=== PATIENT | male | born 1965 | race Caucasian/White ===

== ENCOUNTER → 2016-07-13 | Outpatient (CLI) | payer SELFPAY ==
--- NOTE | 2016-07-13 13:31 | XR ---
EXAMINATION TYPE: XR chest 2V DATE OF EXAM: 07/13/2016 12:28 PM COMPARISON: NONE INDICATION: Chest pain TECHNIQUE: Frontal and lateral views of the chest are obtained. FINDINGS: The heart size is normal. The pulmonary vasculature is normal. The lungs are clear. IMPRESSION: 1. No acute pulmonary process.
== END | disposition home or self-care (01) ==
LOC: RADXRMAIN 12:06
PROVIDERS: ATTEND Family Medicine
DX: R07.9 Chest pain, unspecified (principal)
CPT/HCPCS: 71020

== ENCOUNTER 2016-07-15 11:53 | Observation (INO) | payer OTHER ==
[2016-07-15 12:26] LABS: Basophils % (A) 1 %; CH 32.7; CHCM 34.4; Eosinophils # (A) 0.1 k/uL (0-0.7); Eosinophils % (A) 1 %; HCT 40.4 % (39.0-53.0); HDW 2.17; HGB 13.6 gm/dL (13.0-17.5); Luc # (Auto) 0.27; Luc % (Auto) 3; Lymphocytes # (A) 2.3 k/uL (1.0-4.8); Lymphocytes % (A) 25 %; MCHC 33.6 g/dL (31.0-37.0); MCV 95.2 fL (80.0-100.0); Mean Platelet Volume 7.5; Monocytes # (A) 0.5 k/uL (0-1.0); Monocytes % (A) 5 %; Neutrophils # (A) 6.1 k/uL (1.3-7.7); Neutrophils % (A) 66 %; RBC 4.24 m/uL (4.30-5.90); RDW 12.1 % (11.5-15.5); WBC 9.3 k/uL (3.8-10.6); WBC (Perox) 9.64
[2016-07-15 12:37] LABS: Partial Thromboplastin Time 23.8 sec (22.0-30.0); Prothrombin Time 10.4 sec (9.0-12.0)
[2016-07-15 12:40] LABS: ALT 45 U/L (21-72); AST 29 U/L (17-59); Alkaline Phosphatase 67 U/L (38-126); Anion Gap 15 mmol/L; Blood Urea Nitrogen 24 mg/dL (9-20); Calcium 9.6 mg/dL (8.4-10.2); Carbon Dioxide 22 mmol/L (22-30); Chloride 103 mmol/L (98-107); Glucose 103 mg/dL (74-99); Non-African American GFR(MDRD) >60 (>60 ml/min/1.73 sqM); Potassium 4.6 mmol/L (3.5-5.1); Sodium 140 mmol/L (137-145); Total Bilirubin 0.7 mg/dL (0.2-1.3); Total Protein 7.7 g/dL (6.3-8.2)
--- NOTE | 2016-07-15 12:45 | XR ---
EXAMINATION TYPE: XR chest 2V DATE OF EXAM: 07/15/2016 12:34 PM COMPARISON: 07/13/2016 HISTORY: 50-year-old male with chest pain TECHNIQUE: PA and lateral views FINDINGS: Heart is normal size. Mild elongation of the thoracic aorta is unchanged. Mild interstitial prominenc e appears chronic. No consolidation or pleural effusion. IMPRESSION: Chronic changes without acute cardiopulmonary process.
--- NOTE | 2016-07-15 12:54 | ED ---
General Adult HPI - General Chief complaint: Chest Pain Stated complaint: chest pain Time Seen by Provider: 07/15/16 12:08 Source: patient, RN notes reviewed, old records reviewed Mode of arrival: wheelchair Limitations: no limitations - History of Present Illness Initial comments: This is a 50-year-old male ER for events of chest pain, intermittent chest pain for 3 months, worse today. Patient has no cardiac risk factors no high blood pressure [place] shown no diabetes no strong family history. Patient states pain is left-sided with dizziness weakness nausea vomiting. No fevers or travel history, no risk factors or prior history of DVT. Patient did see his family physician who sent him to the ER for evaluation - Related Data Home Medications Medication Instructions Recorded Confirmed Aspirin 81 mg PO DAILY 07/15/16 07/15/16 Atenolol 25 mg PO BID 07/15/16 07/15/16 Multivitamin/Iron/Folic Acid 1 tab PO DAILY 07/15/16 07/15/16 [Centrum Complete Multivit Tab] Allergies Allergy/AdvReac Type Severity Reaction Status Date / Time No Known Allergies Allergy Verified 07/15/16 12:00 Review of Systems ROS Statement: Those systems with pertinent positive or pertinent negative responses have been documented in the HPI. ROS Other: All systems not noted in ROS Statement are negative. Past Medical History Past Medical History: No Reported History History of Any Multi-Drug Resistant Organisms: None Reported Additional Past Surgical History / Comment(s): Jaw Past Psychological History: No Psychological Hx Reported Smoking Status: Former smoker Past Alcohol Use History: Occasional Past Drug Use History: None Reported General Exam Limitations: no limitations General appearance: anxious Head exam: Present: atraumatic, normocephalic, normal inspection Eye exam: Present: normal appearance, PERRL, EOMI. Absent: scleral icterus, conjunctival injection, periorbital swelling ENT exam: Present: normal exam, mucous membranes moist Neck exam: Present: normal inspection. Absent: tenderness, meningismus, lymphadenopathy Respiratory exam: Present: normal lung sounds bilaterally. Absent: respiratory distress, wheezes, rales, rhonchi, stridor Cardiovascular Exam: Present: regular rate, normal rhythm, normal heart sounds. Absent: systolic murmur, diastolic murmur, rubs, gallop, clicks GI/Abdominal exam: Present: soft, normal bowel sounds. Absent: distended, tenderness, guarding, rebound, rigid Extremities exam: Present: normal inspection, full ROM, normal capillary refill. Absent: tenderness, pedal edema, joint swelling, calf tenderness Back exam: Present: normal inspection Neurological exam: Present: alert, oriented X3, CN II-XII intact Psychiatric exam: Present: normal affect, normal mood Skin exam: Present: warm, dry, intact, normal color. 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 She does have significant chest pain, hypertension for cardiac risk factors patient will be admitted for cardiac evaluation treatment initial EKG shows no ST elevation, initial troponin is negative, will patient anticoagulated patient admitted for further cardiac observation - Lab Data Result diagrams: 07/15/16 12:12 07/15/16 12:12 Lab Results 07/15/16 07/15/16 07/15/16 Range/Units 12:12 12:12 12:12 WBC 9.3 (3.8-10.6) k/uL RBC 4.24 L (4.30-5.90) m/uL Hgb 13.6 (13.0-17.5) gm/dL Hct 40.4 (39.0-53.0) % MCV 95.2 (80.0-100.0) fL MCH 32.0 (25.0-35.0) pg MCHC 33.6 (31.0-37.0) g/dL RDW 12.1 (11.5-15.5) % Plt Count 300 (150-450) k/uL Neutrophils % 66 % Lymphocytes % 25 % Monocytes % 5 % Eosinophils % 1 % Basophils % 1 % Neutrophils # 6.1 (1.3-7.7) k/uL Lymphocytes # 2.3 (1.0-4.8) k/uL Monocytes # 0.5 (0-1.0) k/uL Eosinophils # 0.1 (0-0.7) k/uL Basophils # 0.0 (0-0.2) k/uL PT (9.0-12.0) sec INR (<1.1) APTT (22.0-30.0) sec Sodium 140 (137-145) mmol/L Potassium 4.6 (3.5-5.1) mmol/L Chloride 103 (98-107) mmol/L Carbon Dioxide 22 (22-30) mmol/L Anion Gap 15 mmol/L BUN 24 H (9-20) mg/dL Creatinine 0.70 (0.66-1.25) mg/dL Est GFR (MDRD) Af Amer >60 (>60 ml/min/1.73 sqM) Est GFR (MDRD) Non-Af >60 (>60 ml/min/1.73 sqM) Glucose 103 H (74-99) mg/dL Calcium 9.6 (8.4-10.2) mg/dL Magnesium 2.0 (1.6-2.3) mg/dL Total Bilirubin 0.7 (0.2-1.3) mg/dL AST 29 (17-59) U/L ALT 45 (21-72) U/L Alkaline Phosphatase 67 (38-126) U/L Total Creatine Kinase 110 (55-170) U/L CK-MB (CK-2) 1.2 (0.0-2.4) ng/mL CK-MB (CK-2) Rel Index 1.1 Troponin I <0.012 (0.000-0.034) ng/mL Total Protein 7.7 (6.3-8.2) g/dL Albumin 4.8 (3.5-5.0) g/dL Lipase 56 (23-300) U/L 07/15/16 Range/Units 12:12 WBC (3.8-10.6) k/uL RBC (4.30-5.90) m/uL Hgb (13.0-17.5) gm/dL Hct (39.0-53.0) % MCV (80.0-100.0) fL MCH (25.0-35.0) pg MCHC (31.0-37.0) g/dL RDW (11.5-15.5) % Plt Count (150-450) k/uL Neutrophils % % Lymphocytes % % Monocytes % % Eosinophils % % Basophils % % Neutrophils # (1.3-7.7) k/uL Lymphocytes # (1.0-4.8) k/uL Monocytes # (0-1.0) k/uL Eosinophils # (0-0.7) k/uL Basophils # (0-0.2) k/uL PT 10.4 (9.0-12.0) sec INR 1.0 (<1.1) APTT 23.8 (22.0-30.0) sec Sodium (137-145) mmol/L Potassium (3.5-5.1) mmol/L Chloride (98-107) mmol/L Carbon Dioxide (22-30) mmol/L Anion Gap mmol/L BUN (9-20) mg/dL Creatinine (0.66-1.25) mg/dL Est GFR (MDRD) Af Amer (>60 ml/min/1.73 sqM) Est GFR (MDRD) Non-Af (>60 ml/min/1.73 sqM) Glucose (74-99) mg/dL Calcium (8.4-10.2) mg/dL Magnesium (1.6-2.3) mg/dL Total Bilirubin (0.2-1.3) mg/dL AST (17-59) U/L ALT (21-72) U/L Alkaline Phosphatase (38-126) U/L Total Creatine Kinase (55-170) U/L CK-MB (CK-2) (0.0-2.4) ng/mL CK-MB (CK-2) Rel Index Troponin I (0.000-0.034) ng/mL Total Protein (6.3-8.2) g/dL Albumin (3.5-5.0) g/dL Lipase (23-300) U/L - Radiology Data Radiology results: report reviewed (Chest x-ray 2 view negative for acute disease), image reviewed Critical Care Time Critical Care Time: Yes Total Critical Care Time: 31 Disposition Clinical Impression: Chest pain Disposition: HOME SELF-CARE Condition: Good Referrals: Noah Vasquez MD [Primary Care Provider] - 1-2 days
[2016-07-15 12:57] LABS: Creatine Kinase 110 U/L (55-170)
[2016-07-15 13:10] LABS: Creatine Kinase MB 1.2 ng/mL (0.0-2.4); Troponin I <0.012 ng/mL (0.000-0.034)
[2016-07-15] MEDS ORDERED: HEPARIN SODIUM,PORCINE 5,000 UNIT/ML 1 ML VIAL IV ONE (13:36)
[2016-07-15] MEDS ORDERED: HEPARIN SODIUM,PORCINE 5,000 UNIT/ML 1 ML VIAL IV PRN (13:36)
[2016-07-15] MEDS ORDERED: ASPIRIN 81 MG CHEW PO STA (13:36)
[2016-07-15] MEDS ORDERED: NITROGLYCERIN SL TABS 0.4 MG TAB SUBLINGUAL PRN (13:36)
[2016-07-15] MEDS ORDERED: HEPARIN SODIUM,PORCINE/D5W PMX 25,000 UNIT in DEXTROSE/WATER 1 500ML.BAG IV SCH (13:45)
[2016-07-15] MEDS: SODIUM CHLORIDE 0.9% 1,000 ML IV SCH (14:46)
[2016-07-15 19:17] LABS: Creatine Kinase 98 U/L (55-170)
[2016-07-15 19:30] LABS: Creatine Kinase MB 1.1 ng/mL (0.0-2.4); Troponin I <0.012 ng/mL (0.000-0.034)
[2016-07-15] MEDS: ATENOLOL 25 MG TAB PO SCH (20:09)
[2016-07-16 00:13] LABS: Creatine Kinase 89 U/L (55-170)
[2016-07-16 00:27] LABS: Creatine Kinase MB 0.9 ng/mL (0.0-2.4); Troponin I <0.012 ng/mL (0.000-0.034)
[2016-07-16 06:55] LABS: Cholesterol 206 mg/dL (<200); HDL Cholesterol 38 mg/dL (40-60); Triglycerides 253 mg/dL (<150)
--- NOTE | 2016-07-16 08:44 | ECHOF ---
Referral Reason:cp MEASUREMENTS -------- HEIGHT: 165.1 cm WEIGHT: 81.7 kg BP: RVIDd: 2.8 cm (< 3.3) IVSd: 1.0 cm (0.6 - 1.1) LVIDd: 4.8 cm (3.9 - 5.3) LVPWd: 0.9 cm (0.6 - 1.1) IVSs: 1.3 cm LVIDs: 3.7 cm LVPWs: 1.4 cm LA Diam: 2.9 cm (2.7 - 3.8) Ao Diam: 4.0 cm (2.0 - 3.7) AV Cusp: 1.9 cm (1.5 - 2.6) LA Diam: 3.2 cm (2.7 - 3.8) MV EXCURSION: 12.148 mm (> 18.000) MV EF SLOPE: 100 mm/s (70 - 150) EPSS: 0.9 cm MV E Carlos: 0.60 m/s MV DecT: 153 ms MV A Carlos: 0.86 m/s MV E/A Ratio: 0.70 RAP: 5.00 mmHg RVSP: 26.68 mmHg FINDINGS -------- Sinus rhythm. This was a technically good study. There is mild concentric left ventricular hypertrophy. Overall left ventricular systolic function is low-normal with, an EF between 50 - 55 %. The right ventricle is normal in size. Normal LA size by volume 22+/-6 ml/m2. The right atrial size is normal. There is mild aortic valve sclerosis. There is no evidence of aortic regurgitation. Mild mitral annular calcification present. Mild mitral regurgitation is present. Mild tricuspid regurgitation present. There is no evidence of pulmonary hypertension. The right ventricular systolic pressure, as measured by Doppler, is 26.68mmHg. Trace/mild (physiologic) pulmonic regurgitation. The aortic root size is normal. There is no pericardial effusion. CONCLUSIONS -------- 1. There is mild concentric left ventricular hypertrophy. 2. Trace/mild (physiologic) pulmonic regurgitation. 3. The aortic root size is normal. 4. There is no pericardial effusion. 5. Overall left ventricular systolic function is low-normal with, an EF between 50 - 55 %. 6. Normal LA size by volume 22+/-6 ml/m2. 7. There is mild aortic valve sclerosis. 8. Mild mitral annular calcification present. 9. Mild mitral regurgitation is present. 10. Mild tricuspid regurgitation present. 11. There is no evidence of pulmonary hypertension. 12. The right ventricular systolic pressure, as measured by Doppler, is 26.68mmHg. STRAPPING MACHINE TENDER: Justine Finnegan RDCS
[2016-07-16] MEDS ORDERED: ASPIRIN 325 MG TAB PO SCH (09:00)
[2016-07-16] MEDS ORDERED: ATORVASTATIN 80 MG TAB PO SCH (09:00)
[2016-07-16] MEDS ORDERED: REGADENOSON 0.4 MG/5 ML SYRINGE IV ONE (09:53)
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
[2016-07-16] MEDS ORDERED: LOSARTAN 50 MG TAB PO SCH (10:30)
[2016-07-16] MEDS ORDERED: FAMOTIDINE 20 MG TAB PO SCH (10:30)
[2016-07-16] MEDS: SODIUM CHLORIDE 0.9% 1,000 ML IV SCH (10:57)
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
--- NOTE | 2016-07-16 11:35 | CONS ---
DATE OF CONSULTATION: Mr. Collins is a 50-year-old male patient who has a history of hypertension. He went to Dr. Noah Vasquez's office. He was given oral beta blockers, but he started experiencing abdominal discomfort that went up into his chest and then went up into his head and he felt his head was bursting. Subsequently he also had some left-sided chest discomfort which appears to be pleuritic and when he moves his left arm the pain gets worse. On initial evaluation, his blood pressure was elevated in the 160s, but today it is in the normal range. He did get beta blockers. REVIEW OF SYSTEMS: No fever, chills, or rigors. No cough or expectoration. No nausea, vomiting, or diarrhea. No hematuria or dysuria. No recent strokes or seizures. Past history of hypertension. He does not know his lipid panel, but his lipid panel is abnormal as follows: Triglycerides 253, total cholesterol 206, LDL 117 and HDL 38. He has ( ) cardiovascular risk with a blood pressure of greater than 160 systolic is at 8.5%. He is nondiabetic. ALLERGIES: No known drug allergies. Medications at home include aspirin, atenolol which has been discontinued, multivitamin. SOCIAL HISTORY: He was a former smoker. He stopped smoking now. On examination, his blood pressure now is in the normal range in the 120s. His heart rate is in the 60s and 70s. Head and neck examination normal. No JVD, thyromegaly, or carotid bruits. Abdomen is soft, nontender. No masses. Heart sounds are normal. Normal S1, normal S2. No murmurs. Breath sounds are normal. No rhonchi. No crackles. Extremities are warm. No edema. The 12-lead ECG is normal. The 2-D echocardiogram is normal with normal LV function. IMPRESSION: 1. Chest discomfort of 2 different types. 2. Hypertension. 3. Abnormal lipid panel and elevated cardiovascular risk of 8.5% based upon initial blood pressure of 160 mmHg systolic. SUGGEST: 1. Stop atenolol. 2. Start losartan 50 mg p.o. daily. 3. Start atorvastatin 20 mg daily. 4. Exercise stress echo with Definity contrast today. If this is normal, he may go home. We will also check a D-dimer because the pain is pleuritic, but also gets worse when he moves his left arm. I will see him in the office in about 2 weeks.
[2016-07-16] MEDS ORDERED: MULTIVITAMINS, THERA 1 EACH TAB PO SCH (12:00)
[2016-07-16] MEDS: ATENOLOL 25 MG TAB PO SCH (12:14)
[2016-07-16 12:36] VITALS: BP 120/80; PULSE 75; RESP 14; TEMP 98.1
--- NOTE | 2016-07-16 13:07 | ECHOS ---
DATE OF SERVICE: 07/16/2016 AGE: 50Y SEX: M HT: 66" WT: 186 lbs. Protocol Lucius: X Others: Stress Echo Stage: IV Dur. of Exercise: 10 minutes *Heart Rate Blood Pressure *Rest: 82 Rest: 127/74 * *Max. Achieved: 152 Maximum BP: 188/78 85% PMHR: 145 100% PMHR: 170 *METS: 10.9 INDICATIONS: Chest pain. MEDICATIONS: Aspirin. The test is being done to evaluate chest pains. Baseline EKG showed sinus rhythm with normal SC interval and QRS duration. Blood pressure at rest is 127/74 with a pulse rate of 82. Patient walked on the Lucius protocol for about 10 minutes achieving a maximum heart rate of 152 with a blood pressure of 188/78. EKGs taken during and after the exercise did not reveal any changes to suggest ischemia. Occasional PVCs were noted. Patient did not experience any chest pain. ECHO DATA: Baseline echo images showed normal wall motion and thickening. The exercise echo images showed augmentation of the wall motion and thickening in all the segments. FINAL IMPRESSION: 1. Negative stress test. 2. Negative stress echo.
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
[2016-07-16] MEDS ORDERED: ATORVASTATIN 20 MG TAB PO SCH (21:00)
== END 2016-07-16 15:02 | disposition home or self-care (01) ==
LOC: EC 11:53 → 3OBS 13:36
PROVIDERS: ADMIT Family Medicine; ATTEND Family Medicine
DX: I16.0 Hypertensive urgency (principal); E78.5 Hyperlipidemia, unspecified; R13.10 Dysphagia, unspecified; R07.89 Other chest pain; I10 Essential (primary) hypertension; Z79.82 Long term (current) use of aspirin; Z79.899 Other long term (current) drug therapy; Z87.891 Personal history of nicotine dependence; E66.9 Obesity, unspecified; Z68.30 Body mass index [BMI] 30.0-30.9, adult; Z87.828 Personal history of other (healed) physical injury and trauma
CPT/HCPCS: 36415; 93005; 93350; 93017; 93306; 85379; 80061; 80053; 82550; 82553; 83690; 83735; 84484; 85025; 85049; 85610; 85730 ×2; 71020; 99291; 96376; G0378 ×2; J1644 ×2; J2785; 96366

== ENCOUNTER 2017-01-01 11:59 | Emergency (ER) | payer OTHER ==
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
[2017-01-01 13:11] LABS: ALT 46 U/L (21-72); AST 28 U/L (17-59); Anion Gap 10 mmol/L; Blood Urea Nitrogen 17 mg/dL (9-20); Calcium 9.3 mg/dL (8.4-10.2); Carbon Dioxide 25 mmol/L (22-30); Chloride 106 mmol/L (98-107); Glucose 91 mg/dL (74-99); Magnesium 1.8 mg/dL (1.6-2.3); Non-African American GFR(MDRD) >60 (>60 ml/min/1.73 sqM); Sodium 141 mmol/L (137-145); Total Bilirubin 0.6 mg/dL (0.2-1.3); Total Protein 6.6 g/dL (6.3-8.2)
[2017-01-01 13:16] LABS: Alkaline Phosphatase 66 U/L (38-126)
--- NOTE | 2017-01-01 13:19 | XR ---
EXAMINATION TYPE: XR chest 2V DATE OF EXAM: 01/01/2017 COMPARISON: 07/15/2016 HISTORY: Chest pressure TECHNIQUE: Frontal and lateral views of the chest are obtained. FINDINGS: Heart and mediastinum are normal. Lungs are clear. Diaphragm is normal. Bony thorax is int act. There is spurring in the thoracic spine. There are chest leads. IMPRESSION: No active cardiopulmonary disease. No change.
[2017-01-01 13:23] LABS: Basophils % (A) 0 %; CH 32.5; CHCM 34.6; Eosinophils % (A) 0 %; HCT 34.1 % (39.0-53.0); HDW 2.15; HGB 11.8 gm/dL (13.0-17.5); Luc # (Auto) 0.22; Luc % (Auto) 2; Lymphocytes % (A) 16 %; MCH 32.7 pg (25.0-35.0); MCHC 34.6 g/dL (31.0-37.0); MCV 94.3 fL (80.0-100.0); Mean Platelet Volume 8.2; Monocytes # (A) 0.6 k/uL (0-1.0); Monocytes % (A) 5 %; Neutrophils # (A) 9.4 k/uL (1.3-7.7); Neutrophils % (A) 77 %; RBC 3.61 m/uL (4.30-5.90); RDW 12.5 % (11.5-15.5); WBC 12.3 k/uL (3.8-10.6); WBC (Perox) 12.16
[2017-01-01 13:32] LABS: Partial Thromboplastin Time 23.2 sec (22.0-30.0); Prothrombin Time 10.3 sec (9.0-12.0)
[2017-01-01 13:44] LABS: Creatine Kinase 220 U/L (55-170)
[2017-01-01 13:57] LABS: Troponin I <0.012 ng/mL (0.000-0.034)
[2017-01-01 14:09] LABS: Creatine Kinase MB 2.6 ng/mL (0.0-2.4)
[2017-01-01 14:17] VITALS: PULSE 63; RESP 16
[2017-01-01 14:26] VITALS: BP 103/65; TEMP 97.5
== END 2017-01-01 14:38 | disposition home or self-care (01) ==
LOC: EC 11:59
DX: R07.9 Chest pain, unspecified (principal); M19.90 Unspecified osteoarthritis, unspecified site; Z87.891 Personal history of nicotine dependence; Z79.1 Long term (current) use of non-steroidal anti-inflammatories (NSAID); Z79.82 Long term (current) use of aspirin; Z79.899 Other long term (current) drug therapy
CPT/HCPCS: 36415; 71020; 80053; 82550; 82553; 83690; 83735; 84484; 85025; 85379; 85610; 85730; 93005; 99285

== ENCOUNTER 2017-02-10 07:57 | Observation (INO) | payer OTHER ==
[2017-02-10] MEDS ORDERED: NITROGLYCERIN OINT 1 INCH/GM PACKET TOPICAL STA (08:12)
[2017-02-10] MEDS ORDERED: ASPIRIN 81 MG PO STA (08:12)
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
--- NOTE | 2017-02-10 08:55 | XR ---
EXAMINATION TYPE: XR chest 2V DATE OF EXAM: 02/10/2017 COMPARISON: 01/01/2017 HISTORY: Chest pain and discomfort TECHNIQUE: Frontal and lateral views of the chest are obtained. FINDINGS: There is no focal air space opacity, pleural effusion, or pneumothorax seen. The cardiac silhouette size is within normal limits. The osseous structures are intact. Degenerative changes of the thoracic spine are noted. IMPRESSION: No acute cardiopulmonary process, unchanged from the prior.
[2017-02-10 09:15] LABS: ALT 41 U/L (21-72); AST 28 U/L (17-59); Alkaline Phosphatase 69 U/L (38-126); Anion Gap 11 mmol/L; Blood Urea Nitrogen 19 mg/dL (9-20); Calcium 9.4 mg/dL (8.4-10.2); Carbon Dioxide 25 mmol/L (22-30); Chloride 103 mmol/L (98-107); Glucose 115 mg/dL (74-99); Magnesium 1.7 mg/dL (1.6-2.3); Non-African American GFR(MDRD) >60 (>60 ml/min/1.73 sqM); Potassium 4.2 mmol/L (3.5-5.1); Sodium 139 mmol/L (137-145); Total Bilirubin 0.7 mg/dL (0.2-1.3)
[2017-02-10 09:16] LABS: Creatine Kinase 121 U/L (55-170)
[2017-02-10 09:18] LABS: Basophils % (A) 0 %; CH 32.1; CHCM 34.4; Eosinophils # (A) 0.1 k/uL (0-0.7); Eosinophils % (A) 1 %; HCT 37.8 % (39.0-53.0); HDW 2.14; HGB 13.1 gm/dL (13.0-17.5); Luc # (Auto) 0.27; Luc % (Auto) 3; Lymphocytes # (A) 1.8 k/uL (1.0-4.8); Lymphocytes % (A) 20 %; MCH 32.3 pg (25.0-35.0); MCHC 34.5 g/dL (31.0-37.0); MCV 93.6 fL (80.0-100.0); Mean Platelet Volume 7.4; Monocytes # (A) 0.6 k/uL (0-1.0); Monocytes % (A) 7 %; Neutrophils % (A) 69 %; RBC 4.04 m/uL (4.30-5.90); WBC 8.8 k/uL (3.8-10.6); WBC (Perox) 9.26
[2017-02-10 09:20] LABS: Partial Thromboplastin Time 21.9 sec (22.0-30.0); Prothrombin Time 10.2 sec (9.0-12.0)
[2017-02-10 09:30] LABS: Creatine Kinase MB 1.8 ng/mL (0.0-2.4); Troponin I <0.012 ng/mL (0.000-0.034)
[2017-02-10] MEDS ORDERED: NITROGLYCERIN SL TABS 0.4 MG TAB SUBLINGUAL PRN (09:45)
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
[2017-02-10 14:56] LABS: Creatine Kinase 94 U/L (55-170)
[2017-02-10 15:08] LABS: Creatine Kinase MB 1.2 ng/mL (0.0-2.4); Troponin I <0.012 ng/mL (0.000-0.034)
[2017-02-10 15:18] VITALS: RESP 18
[2017-02-10] MEDS: NITROGLYCERIN OINT 1 INCH/GM PACKET TOPICAL SCH ×3 (15:45→23:50)
[2017-02-10] MEDS: ASPIRIN 81 MG PO SCH ×2 (20:40→20:42)
[2017-02-10] MEDS ORDERED: ATORVASTATIN 20 MG TAB PO SCH (21:00)
[2017-02-10 21:10] LABS: Creatine Kinase 92 U/L (55-170)
[2017-02-10 21:15] LABS: Creatine Kinase MB 0.9 ng/mL (0.0-2.4); Troponin I <0.012 ng/mL (0.000-0.034)
[2017-02-11 02:37] LABS: Cholesterol 172 mg/dL (<200); HDL Cholesterol 47 mg/dL (40-60)
[2017-02-11] MEDS ORDERED: AMINOPHYLLINE 500 MG/20 ML VIAL IV PRN (05:00)
[2017-02-11] MEDS ORDERED: REGADENOSON 0.4 MG/5 ML SYRINGE IV ONE (06:00)
[2017-02-11] MEDS: NITROGLYCERIN OINT 1 INCH/GM PACKET TOPICAL SCH (06:29)
[2017-02-11] MEDS ORDERED: LEVOTHYROXINE 100 MCG TAB PO SCH (06:30)
[2017-02-11] MEDS ORDERED: PANTOPRAZOLE 40 MG TABLET PO SCH (07:30)
[2017-02-11] MEDS ORDERED: LOSARTAN 50 MG TAB PO SCH (09:00)
[2017-02-11] MEDS ORDERED: MELOXICAM 7.5 MG TAB PO SCH (09:00)
[2017-02-11] MEDS ORDERED: ATENOLOL 12.5 MG TAB PO SCH (09:00)
[2017-02-11] MEDS ORDERED: ASPIRIN 325 MG TAB PO SCH (09:00)
--- NOTE | 2017-02-11 10:52 | NM ---
EXAMINATION TYPE: NM stress lexiscan cardiolite DATE OF EXAM: 02/11/2017 COMPARISON: NONE HISTORY: Chest pain TECHNIQUE: After the intravenous administration of 10.2 mCi Tc 99m Sestamibi - Cardiolite resting SP ECT images acquired 45 minutes post injection. The patient received 0.4mg Lexiscan, 28 mCi Tc 99m Sestamibi - Stress images obtained 45 minutes post injection FINDINGS: Review of stress and rest SPECT images demonstrates no distinct perfusion abnormality. Gated analysi s shows normal wall motion with an estimated left ventricular ejection fraction of 63 %. There is diminished radiotracer accumulation at the cardiac apex on stress images. This area has a mo re normal appearance on the resting images. Note is made of some cardiac thickening at the cardiac ap ex. Additional balbuena abnormal radiotracer. IMPRESSION: Clinical correlation recommended for stress-induced ischemic change the cardiac apex.
--- NOTE | 2017-02-11 11:00 | US ---
EXAMINATION TYPE: US abdomen complete DATE OF EXAM: 02/11/2017 COMPARISON: NONE CLINICAL HISTORY: epigastric pain. Chest pain and rt flank/back "twitching" per patient EXAM MEASUREMENTS: Liver Length: 14.1 cm Gallbladder Wall: 0.2 cm CBD: 0.4 cm Spleen: 11.0 cm Right Kidney: 12.7 x 4.9 x 7.1 cm Left Kidney: 12.4 x 5.4 x 6.2 cm Pancreas: wnl Liver: wnl Gallbladder: wnl Evidence for sonographic Nagy's sign: no CBD: wnl Spleen: wnl Right Kidney: wnl Left Kidney: wnl Upper IVC: wnl Abd Aorta: wnl IMPRESSION: 1. Normal abdomen ultrasound
[2017-02-11] MEDS ORDERED: MULTIVITAMINS, THERA 1 EACH TAB PO SCH (12:00)
[2017-02-11] MEDS ORDERED: ISOSORBIDE MONONITRATE ER 30 MG TAB.ER.24H PO SCH (13:45)
--- NOTE | 2017-02-11 13:45 | P.PN ---
Subjective This is a 51-year-old male who was seen yesterday in consultation for complaints of epigastric pain. Lexiscan was performed this morning and indicates that diminished radiotracer accumulation at the cardiac apex on stress images. Images were reviewed with Dr. Vail. Patient's clinical presentation is not consistent with previous findings. His results were discussed with the patient in great length and questions were. I have discussed the risks, benefits and alternative therapies for the above-mentioned procedure and for both sedation/analgesia as well as necessary blood product administration, if indicated, as they pertain to this patient. The patient has indicated understanding and acceptance of the risks and procedures discussed. The patient was given 2 options to proceed with heart catheterization. He should either undergo this procedure will here in the hospital or he could be discharged home to have the procedure on Tuesday. The patient has decided that he feels comfortable going home on medical therapy and will continue his current home medications with the addition of Imdur. He will presented back to the hospital on Tuesday for an outpatient cardiac catheterization Dr. Vail. This has been all set up. Objective - Vital Signs Vital signs: Vital Signs Temp 98.8 F 02/11/17 11:45 Pulse 60 02/11/17 12:00 Resp 18 02/11/17 12:00 BP 102/57 02/11/17 11:45 Pulse Ox 96 02/11/17 11:45 Intake & Output 02/10/17 02/11/17 02/11/17 18:59 06:59 18:59 Intake Total 820 300 360 Balance 820 300 360 Weight 78.4 kg Intake: Oral 820 300 360 Other: Voiding Method Toilet Toilet Toilet # Voids 2 2 3 - Exam GENERAL: Well-appearing, well-nourished and in no acute distress. NECK: Supple without JVD or thyromegaly. LUNGS: Breath sounds clear to auscultation bilaterally. Respiration equal and unlabored. No wheezes, rales or rhonchi. HEART: Regular rate and rhythm without murmurs, rubs or gallops. S1 and S2 heard. EXTREMITIES: Normal range of motion, no edema. No clubbing or cyanosis. Peripheral pulses intact and strong. - Labs CBC & Chem 7: 02/10/17 08:25 08/31/17 08:25 Assessment and Plan Plan: ASSESSMENT 1. Epigastric pain 2. Essential hypertension 3. Dyslipidemia PLAN From a cardiac standpoint, this patient is stable for discharge home on medical therapy. He is to return on Tuesday at 8 AM for cardiac catheterization with Dr. Vail. This has been discussed with the patient questions have been answered and he is in complete agreement with this plan of care. He has been advised if he feels any further episodes of this type pain he is to report to the emergency department. Nurse Practitioner note has been reviewed, I agree with a documented findings and plan of care. Patient was seen and examined.
[2017-02-11 15:50] VITALS: BP 102/63; PULSE 62; TEMP 98.2
--- NOTE | 2017-02-11 17:22 | HP ---
HISTORY AND PHYSICAL SUBJECTIVE: A 51-year-old, white male, who has left-sided epigastric chest burning and pressure was reading a paper, drinking coffee and gas from his upper abdomen went into his chest. It is tender to palpation when he pushed on the left side of his chest. reproducible. He had an exercise echo in July that was unremarkable. He will need a stress test at this point before he goes home. EKG shows LVH. CPKs are normal. Chest x-ray was negative. Echo shows LVH 50-55% EF. REVIEW OF SYSTEM: Fourteen point review of systems negative except for as mentioned in HPI. PAST HISTORY: Ophthalmologic disorder, GERD, hypertension, dyslipidemia, osteoarthritis, right hand. 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 FAMILY HISTORY: Father with GI bleed. Mother is doing good. MEDICINES AND ALLERGIES: See old chart. CARDIOVASCULAR: S1, S2. MUSCULOSKELETAL: Tender to palpation of left chest wall with costo area anteriorly. HEMATOLOGIC: Negative Kiya's. GI: Soft, nontender Blood pressure is 130/70, O2 100% on room air. Temp 98.4, pulse is 70 to 80s. ASSESSMENT: 1. Epigastric. 2. Hypertension. 3. Atypical chest pain and costochondritis. 4. Dyslipidemia. 5. Rule out any kind of cholecystitis. A stress test prior to discharge home. PARESHL / NAHUNN: [id number] /
--- NOTE | 2017-02-11 19:37 | EST ---
EXERCISE STRESS DATE OF SERVICE: 02/11/17 TYPE OF EXAM: Lexiscan RESTING HEART RATE: 57 RESTING BLOOD PRESSURE: 110/76 MAXIMUM HEART RATE: 96 MAXIMUM BLOOD PRESSURE: 136/79 85% PMHR: 144 100% PMHR:169 HISTORY: Mr. Collins is a 51 year old gentleman with history of hypertension and hypercholesterolemia and also smoking being evaluated for cardiac status. Baseline EKG showed sinus rhythm with normal KS interval and QRS duration with nonspecific ST-T abnormalities. The patient was given standard dose of Lexiscan. EKG did not reveal any changes to suggest ischemia. FINAL IMPRESSION: 1. Negative Lexiscan stress test. 2. Report on the nuclear images to be done by the radiologist. MMODL / IJN: [id number] /
== END 2017-02-11 16:35 | disposition home or self-care (01) ==
LOC: EC 07:57 → 3OBS 09:46
PROVIDERS: ADMIT Family Medicine; ATTEND Family Medicine
DX: R10.13 Epigastric pain (principal); R07.89 Other chest pain; M94.0 Chondrocostal junction syndrome [Tietze]; I10 Essential (primary) hypertension; E78.5 Hyperlipidemia, unspecified; M19.041 Primary osteoarthritis, right hand; K21.9 Gastro-esophageal reflux disease without esophagitis; H35.30 Unspecified macular degeneration; Z79.1 Long term (current) use of non-steroidal anti-inflammatories (NSAID); Z79.82 Long term (current) use of aspirin; Z79.899 Other long term (current) drug therapy; Z87.891 Personal history of nicotine dependence
CPT/HCPCS: 36415; 93005; 93017; 80061; 80053; 82550; 82553; 83735; 84484; 85025; 85610; 85730; 71020; 76700; 78452; 99285; G0378 ×2; A9500; J2785

== ENCOUNTER → 2017-02-15 | Day surgery (SDC) | payer OTHER ==
[~2017-02-15] MED LIST: ALPRAZolam 0.25 MG TAB PO PRN; ASPIRIN 325 MG TAB PO STA; IOHEXOL 350 MG/ML 125ML BOTTLE INJ ONE; LIDOCAINE 2% INJ 20 MG/ML (20 ML MDV) ONE; LIDOCAINE 2% INJ 20 MG/ML SQ ONE; MIDAZOLAM 2 MG/2 ML VIAL IVP ONE; MIDAZOLAM 2 MG/2 ML VIAL ONE; NITROGLYCERIN SL TABS 0.4 MG TAB SUBLINGUAL PRN; RX INFO: IV CONTRAST WAS GIVEN 1 EACH MISC MISCELLANE PRN; SODIUM CHLORIDE 0.9% 1,000 ML IV ONE; SODIUM CHLORIDE 0.9% 1,000 ML IV SCH; SODIUM CHLORIDE 0.9% 1,000 ML in EMPTY BAG 1 BAG IV ONE; fentaNYL (PF) 50 MCG/ML 2 ML AMP IV ONE; fentaNYL (PF) 50 MCG/ML 2 ML AMP ONE
[2017-02-15 08:32] VITALS: PULSE 63; RESP 20; TEMP 98.5
--- NOTE | 2017-02-15 10:12 | P.PCN ---
Date of Procedure: 02/15/17 Preoperative Diagnosis: Recurrent chest pain and positive stress test Postoperative Diagnosis: Normal coronary arteries. Moderate plaque in the superficial femoral artery Procedure(s) Performed: Left heart catheterization with left ventriculography Implants: Indications for Procedure: Operative Findings: Description of Procedure: HISTORY: This is a 51-year-old gentleman who was admitted recently with chest pains which were atypical. Patient was evaluated by nuclear stress test which was suggestive of possible ischemia of the apex. Patient is advised to have a cardiac catheterization for definitive diagnosis. CONSENT:I have discussed the risks, benefits and alternative therapies for the above-mentioned procedure and for both sedation/analgesia as well as necessary blood product administration, if indicated, as they pertain to this patient. The patient has indicated understanding and acceptance of the risks and procedures discussed. PROCEDURE: Patient was brought to the lab in a fasting state. Patient was given some IV sedation. The right groin is infiltrated with lidocaine and right femoral artery was entered using Seldinger technique. A 6-[place]ian catheter was left in place and selective coronary arteriography and left ventriculography was performed. Patient tolerated the procedure well. Femoral angiogram was performed and Angio-Seal was applied for hemostasis. No immediate complications were noted and patient was transferred to [facility] in a stable condition Conscious Sedation: Versed : 1 mg Fentanyl 50 g Duration 20 minutes HEMODYNAMICS: The aortic pressure was about 80-90 systolic. Left ankle end- diastolic pressure is 8-12. There was no gradient across the aortic valve SELECTIVE CORONARY ARTERIOGRAPHY: LEFT MAIN: Normal length and patent THE LEFT ANTERIOR DESCENDING CORONARY ARTERY: . This is a good caliber vessel giving rise to 2 diagonal branches and septal branches. The LAD and branches are free of any occlusive disease THE LEFT CIRCUMFLEX AND IS CORONARY ARTERY: . This is a good caliber vessel. We will rise to good-sized OM branch. The circumflex and branches are free of occlusive disease THE RIGHT CORONARY ARTERY: . This is a dominant vessel and good in size, free of any occlusive disease. THE FEMORAL ANGIOGRAM: This revealed about 50-60% extrinsic plaque in the superficial femoral artery LEFT VENTRICULOGRAPHY: This revealed normal-sized Cardec silhouette with good systolic function FINAL IMPRESSION: NORMAL CORONARY ARTERIES. Normal LV function. PLAN: Symptomatically medical therapy and this factor modification. PROGNOSIS: Good.
[2017-02-15 15:43] VITALS: BP 101/64
== END | disposition home or self-care (01) ==
LOC: CATHCVL 07:52
PROVIDERS: ATTEND Internal Medicine Cardiovascular Disease
DX: R07.89 Other chest pain (principal); I10 Essential (primary) hypertension; E78.5 Hyperlipidemia, unspecified; Z87.891 Personal history of nicotine dependence; Z79.82 Long term (current) use of aspirin; Z79.1 Long term (current) use of non-steroidal anti-inflammatories (NSAID); Z79.899 Other long term (current) drug therapy
CPT/HCPCS: 93458; 99153; C1894; C1769; J2001; J2250; J3010; Q9967

== ENCOUNTER → 2017-03-02 | Outpatient (CLI) | payer OTHER ==
--- NOTE | 2017-03-02 15:10 | NM ---
EXAMINATION TYPE: NM hepatobiliary w EF DATE OF EXAM: 03/02/2017 COMPARISON: NONE HISTORY: Right upper quadrant pain per order. Epigastric pain per patient. TECHNIQUE: After the intravenous administration of 5.23 mCi Tc 99m Mebrofenin hepatobiliary scintigra phy is performed. Immediate images post injection. FINDINGS: There is satisfactory initial accumulation of tracer by the liver. The gallbladder is visualized wit hin 20 minutes. The small bowel activity is noted within 25 minutes. At one hour 8 ounces of oral e nsure plus is given to mimic CCK and gallbladder ejection fraction is calculated at 75 %, in the norm al range. Therefore there is no scintigraphic evidence of cystic or common bile duct obstruction to suggest acute cholecystitis or gallbladder dyskinesia. IMPRESSION: Exam is within normal limits.
== END | disposition home or self-care (01) ==
LOC: RADNMMAIN 12:52
PROVIDERS: ATTEND Family Medicine
DX: R10.11 Right upper quadrant pain (principal)
CPT/HCPCS: 78226; A9537

== ENCOUNTER → 2018-03-01 | Outpatient (CLI) | payer OTHER ==
[2018-03-01 10:35] LABS: Cholesterol 183 mg/dL (<200); HDL Cholesterol 44 mg/dL (40-60); LDL Cholesterol,Calculated 106 mg/dL (0-99); Triglycerides 166 mg/dL (<150)
== END | disposition home or self-care (01) ==
LOC: LABWHC1 10:01
PROVIDERS: ATTEND Internal Medicine Clinical Cardiac Electrophysiology
DX: E78.5 Hyperlipidemia, unspecified (principal)
CPT/HCPCS: 36415; 80061

== ENCOUNTER 2018-03-13 09:24 | Day surgery (SDC) | payer OTHER ==
[2018-03-08 12:23] VITALS: BMI 29.8
[~2018-03-13 09:24] MED LIST changes: -ALPRAZolam 0.25 MG TAB PO PRN; -ASPIRIN 325 MG TAB PO STA; -IOHEXOL 350 MG/ML 125ML BOTTLE INJ ONE; +LACTATED RINGERS 1,000 ML IV SCH; -LIDOCAINE 2% INJ 20 MG/ML (20 ML MDV) ONE; -LIDOCAINE 2% INJ 20 MG/ML SQ ONE; -MIDAZOLAM 2 MG/2 ML VIAL IVP ONE; -MIDAZOLAM 2 MG/2 ML VIAL ONE; -NITROGLYCERIN SL TABS 0.4 MG TAB SUBLINGUAL PRN; -RX INFO: IV CONTRAST WAS GIVEN 1 EACH MISC MISCELLANE PRN; -SODIUM CHLORIDE 0.9% 1,000 ML IV ONE; -SODIUM CHLORIDE 0.9% 1,000 ML IV SCH; -SODIUM CHLORIDE 0.9% 1,000 ML in EMPTY BAG 1 BAG IV ONE; -fentaNYL (PF) 50 MCG/ML 2 ML AMP IV ONE; -fentaNYL (PF) 50 MCG/ML 2 ML AMP ONE
[2018-03-13 09:51] VITALS: TEMP 98.3
[2018-03-13] MEDS ORDERED: LIDOCAINE 1% 20 ML VIAL (10MG/ML) FOR IV START INTRADERMA ONE (09:59)
[2018-03-13] MEDS ORDERED: PROPOFOL 10 MG/ML 20 ML VIAL IV ONE (10:09)
[2018-03-13] MEDS ORDERED: LIDOCAINE 1% INJ 10MG/ML (20 ML MDV) ONE (10:09)
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
--- NOTE | 2018-03-13 10:37 | P.OP ---
Date of Procedure: 03/13/18 Preoperative Diagnosis: Screening colonoscopy Postoperative Diagnosis: Normal colonoscopy Procedure(s) Performed: Colonoscopy Anesthesia: MAC Surgeon: Jesus Manuel Jaquez Pathology: none sent Condition: stable Disposition: PACU Description of Procedure: PROCEDURE: The patient was placed on the endoscopy table in the lateral position. Digital rectal examination was performed which revealed no abnormalities. The prostate was symmetrical without nodules. Flexible colonoscope was then placed in the patient's anus and passed throughout the entire colon. The ileocecal valve was visualized. The cecum, ascending, transverse, descending and sigmoid colon were normal. The rectum was normal as well. There were no masses, polyps or diverticula noted in the entire colon. SUMMARY OF FINDINGS: Normal colonoscopy.
[2018-03-13 10:58] VITALS: BP 110/75; PULSE 67; RESP 18
== END 2018-03-13 11:52 | disposition home or self-care (01) ==
LOC: ORWHC2ENDO 09:24
PROVIDERS: ATTEND Surgery
DX: Z12.11 Encounter for screening for malignant neoplasm of colon (principal); K21.9 Gastro-esophageal reflux disease without esophagitis; E78.5 Hyperlipidemia, unspecified; I10 Essential (primary) hypertension; H35.30 Unspecified macular degeneration; M19.90 Unspecified osteoarthritis, unspecified site; E07.9 Disorder of thyroid, unspecified; Z87.891 Personal history of nicotine dependence; Z79.82 Long term (current) use of aspirin; Z79.890 Hormone replacement therapy; Z79.899 Other long term (current) drug therapy
CPT/HCPCS: J2001; J2704; G0121; 45378

== ENCOUNTER 2018-07-13 07:57 | Day surgery (SDC) | payer OTHER ==
[2018-07-11 11:35] VITALS: BMI 29.0
[~2018-07-13 07:57] MED LIST changes: +LIDOCAINE 1% 20 ML VIAL (10MG/ML) FOR IV START INTRADERMA PRN
[2018-07-13 08:28] VITALS: RESP 16; TEMP 97.3
[2018-07-13] MEDS ORDERED: LIDOCAINE 1% 20 ML VIAL (10MG/ML) FOR IV START INTRADERMA ONE (08:35)
[2018-07-13] MEDS ORDERED: LIDOCAINE 1% INJ 10MG/ML (20 ML MDV) ONE (09:58)
[2018-07-13] MEDS ORDERED: PROPOFOL 10 MG/ML 20 ML VIAL IV ONE (09:58)
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
--- NOTE | 2018-07-13 10:07 | P.OP ---
Date of Procedure: 07/13/18 Preoperative Diagnosis: GERD Postoperative Diagnosis: Antral gastritis No significant hiatal hernia Mild esophagitis Procedure(s) Performed: EGD Anesthesia: MAC Surgeon: Jesus Manuel Jaquez Pathology: other (Antral, esophagus) Condition: stable Disposition: PACU Description of Procedure: The patient's placed on the endoscopy table in the lateral position. He received IV sedation. The gastroscope placed oropharynx and passed in the esophagus and into the stomach. Scope then placed through the pylorus. The first and second portion of the duodenum appeared normal. Scope was then brought back the antrum this. Mildly inflamed. A biopsies performed. The scope was then retroflexed remainder stomach appeared normal. There is no significant hiatal hernia. The GE junction was at 40 cm. The distal esophagus appeared mildly inflamed a biopsies performed. The proximal esophagus appeared normal. Scope was withdrawn for patient.
[2018-07-13 10:51] VITALS: BP 113/74; PULSE 72
== END 2018-07-13 10:53 | disposition home or self-care (01) ==
LOC: ORWHC2ENDO 07:57
PROVIDERS: ATTEND Surgery
DX: K29.50 Unspecified chronic gastritis without bleeding (principal); K21.0 Gastro-esophageal reflux disease with esophagitis; I10 Essential (primary) hypertension; E78.5 Hyperlipidemia, unspecified; E03.9 Hypothyroidism, unspecified; D64.9 Anemia, unspecified; E66.9 Obesity, unspecified; Z68.29 Body mass index [BMI] 29.0-29.9, adult; M19.90 Unspecified osteoarthritis, unspecified site; E78.00 Pure hypercholesterolemia, unspecified; Z79.1 Long term (current) use of non-steroidal anti-inflammatories (NSAID); Z79.890 Hormone replacement therapy; Z79.899 Other long term (current) drug therapy; H35.30 Unspecified macular degeneration; Z87.891 Personal history of nicotine dependence; Z83.79 Family history of other diseases of the digestive system
CPT/HCPCS: 88305; 43239; J2001; J2704

== ENCOUNTER 2018-09-24 10:55 | Observation (INO) | payer OTHER ==
[2018-09-24] MEDS ORDERED: SODIUM CHLORIDE 0.9% 1,000 ML IV STA (11:33)
[2018-09-24] MEDS ORDERED: ASPIRIN 81 MG PO STA (11:33)
[2018-09-24] MEDS ORDERED: NITROGLYCERIN OINT 1 INCH/GM PACKET TOPICAL STA (11:33)
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
[2018-09-24 11:56] LABS: Basophils % (A) 0 %; Eosinophils # (A) 0.2 k/uL (0-0.7); Eosinophils % (A) 1 %; HCT 38.2 % (39.0-53.0); Lymphocytes % (A) 15 %; MCH 31.8 pg (25.0-35.0); MCV 93.7 fL (80.0-100.0); Mean Platelet Volume 7.4; Monocytes # (A) 0.7 k/uL (0-1.0); Monocytes % (A) 5 %; Neutrophils # (A) 10.6 k/uL (1.3-7.7); Neutrophils % (A) 77 %; Platelet Count 328 k/uL (150-450); RBC 4.08 m/uL (4.30-5.90); WBC 13.7 k/uL (3.8-10.6)
[2018-09-24 12:04] LABS: ALT 37 U/L (21-72); AST 31 U/L (17-59); Alkaline Phosphatase 80 U/L (38-126); Anion Gap 11 mmol/L; Blood Urea Nitrogen 11 mg/dL (9-20); Calcium 9.7 mg/dL (8.4-10.2); Carbon Dioxide 22 mmol/L (22-30); Chloride 107 mmol/L (98-107); Glucose 87 mg/dL (74-99); Magnesium 1.9 mg/dL (1.6-2.3); Potassium 4.1 mmol/L (3.5-5.1); Sodium 140 mmol/L (137-145); Total Bilirubin 0.3 mg/dL (0.2-1.3); Total Protein 7.7 g/dL (6.3-8.2)
[2018-09-24 12:35] LABS: D-Dimer 0.36 mg/L FEU (<0.60); INR 0.9 (<1.2); Partial Thromboplastin Time 24.1 sec (22.0-30.0); Prothrombin Time 9.8 sec (9.0-12.0)
--- NOTE | 2018-09-24 12:36 | XR ---
EXAMINATION TYPE: XR chest 2V DATE OF EXAM: 09/24/2018 HISTORY: Chest Pain. REFERENCE: Previous study dated 02/10/2017. FINDINGS: The lungs are clear. Pleural spaces are clear. Heart size is within normal limits. IMPRESSION: NO ACUTE CARDIOTHORACIC ABNORMALITY.
[2018-09-24] MEDS ORDERED: NITROGLYCERIN SL TABS 0.4 MG TAB SUBLINGUAL PRN (13:32)
[2018-09-24] MEDS ORDERED: MELOXICAM 7.5 MG TAB PO PRN (16:19)
[2018-09-24] MEDS: NITROGLYCERIN OINT 1 INCH/GM PACKET TOPICAL SCH ×2 (20:46→23:45)
[2018-09-24] MEDS: HEPARIN SODIUM,PORCINE 5,000 UNIT/ML 1 ML VIAL SQ SCH (20:48)
[2018-09-24] MEDS ORDERED: ATORVASTATIN 20 MG TAB PO SCH (21:00)
--- NOTE | 2018-09-24 22:19 | HP ---
HISTORY AND PHYSICAL Nick Collins is a 53-year-old male who presented to the ED with chest pain. He awoke this morning with chest tightness. This had been associated with some dizziness. He thought his blood pressure was low, but in fact it was high. He subsequently was admitted for further evaluation. He states that he did have a cardiac catheterization several years ago and was told that he does not have coronary artery disease. PAST MEDICAL HISTORY: Positive for hypothyroidism, hypertension, history of possible obstructive sleep apnea as he snores loud but has never been tested. FAMILY HISTORY: Noncontributory. SOCIAL HISTORY: Patient used to smoke cigarettes, but quit smoking in 2009. He does not drink alcohol excessively. MEDICATIONS: Prior to admission are multivitamin, meloxicam, Synthroid, Cozaar. There has been no recent change in his Cozaar dose. REVIEW OF SYSTEMS: Noncontributory. PHYSICAL EXAMINATION: Respiratory rate is 16, pulse rate 96, temperature 98.1, blood pressure 113/70, O2 saturation on room air is 96%. HEENT reveals redundant tissue in the posterior pharynx. No jugular venous distention. Chest is clear. Cardiovascular system reveals an S1, S2. No S3, no S4. Abdomen is soft. There is no pedal edema. LABS: Reveal white count of 13.7, hemoglobin of 13. Sodium 140, potassium 4.1, chloride 107, bicarb 22, BUN 11, creatinine 0.65. Troponin less than 0.12. Albumin of 5, total protein of 7.7. IMPRESSION: 1. Chest pain, possible cardiac etiology. 2. Hypertension. 3. Current obstructive sleep apnea. 4. Obesity. 5. Hypothyroidism. At this point in time from a medical standpoint, we will admit the patient to observation, have the patient seen by Cardiology. Keep the patient on nitrates, subcu heparin until he is seen by Cardiology. Keep the patient on aspirin. He would benefit from an outpatient sleep study. He was counseled regarding his condition and this approach. Depending on how he does we should make further changes to his care. ROSA / MANUEL: [id number] /
[2018-09-25 06:16] LABS: Cholesterol 202 mg/dL (<200); HDL Cholesterol 53 mg/dL (40-60); LDL Cholesterol,Calculated 129 mg/dL (0-99); Triglycerides 98 mg/dL (<150)
[2018-09-25] MEDS: NITROGLYCERIN OINT 1 INCH/GM PACKET TOPICAL SCH (06:18)
[2018-09-25] MEDS ORDERED: LEVOTHYROXINE 88 MCG TAB PO SCH (06:30)
[2018-09-25 06:58] VITALS: TEMP 97.9
[2018-09-25] MEDS ORDERED: ASPIRIN 325 MG TAB PO SCH (09:00)
[2018-09-25] MEDS ORDERED: LOSARTAN 50 MG TAB PO SCH (09:00)
--- NOTE | 2018-09-25 09:19 | PN ---
PROGRESS NOTE DATE OF SERVICE: 09/25/2018. He has no chest pain. He has no headache or dizziness this morning. PHYSICAL EXAMINATION: He was lying in bed. His vital signs reveal a blood pressure of 100/65, respiratory rate of 15, pulse rate of 73, temperature 97.9, O2 SAT on room air is 97%. HEENT is unremarkable. Chest is clear. Cardiovascular system is S1, S2. Abdomen is soft. There is no pedal edema. LABS: Reveal troponin of less than 0.012. IMPRESSION: 1. Chest pain. The etiology which is unclear. The patient has risk factors for coronary artery disease. 2. Hypertension. 3. Hypercholesterolemia. 4. Possible obstructive sleep apnea. Patient may require further workup. Will await final recommendation by Cardiology. Continue on his current medications which were reviewed. MMODL / IJN: [id number] /
[2018-09-25 09:57] VITALS: PULSE 70; RESP 16
[2018-09-25] MEDS: HEPARIN SODIUM,PORCINE 5,000 UNIT/ML 1 ML VIAL SQ SCH (10:01)
[2018-09-25 10:03] VITALS: BP 116/75
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
[2018-09-25] MEDS ORDERED: MULTIVITAMINS, THERA 1 EACH TAB PO SCH (12:00)
--- NOTE | 2018-09-25 12:37 | DS ---
DISCHARGE SUMMARY Nick Collins is a 53-year-old male who presented to the ED at [facility] with chest pain. He had some dizziness associated with this. His blood pressure was high. He was admitted for further evaluation. PAST MEDICAL HISTORY: Positive for hypothyroidism, hypertension, possible obstructive sleep apnea. FAMILY HISTORY: Noncontributory. SOCIAL HISTORY: Patient used to smoke cigarettes, but quit smoking in 2009. He does not drink alcohol excessively. PHYSICAL EXAMINATION: Respiratory rate is 16, pulse rate of 96, temperature 98.1, blood pressure 113/72, O2 saturation on room air is 96%. HEENT reveals redundant tissue in the posterior pharynx. Chest is clear. Cardiovascular system reveals an S1, S2. Abdomen is soft. There is no edema. IMPRESSION: 1. Chest pain, possible cardiac etiology. 2. Hypertension. 3. Occult obstructive sleep apnea. 4. Obesity. 5. Hypothyroidism. The patient was ruled out for an [place], based on serial CPKs and EKGs. He was seen by Cardiology and thought to be stable for discharge. He is being discharged today with close outpatient followup and an outpatient stress test to be done after the patient sees Dr. Lagunas in 2 weeks' time. Patient has no chest pain today and is doing quite well on physical examination, blood pressure is 116/69, respiratory rate of 15, pulse rate 65, temperature 97.7. HEENT reveals no new changes. Chest is clear. Cardiovascular system is S1, S2. Abdomen is soft. There is no edema. The patient will be discharged home today. DISCHARGE DIAGNOSES: 1. Chest pain. 2. Hypertension. 3. Obstructive sleep apnea, likely. 4. Hypothyroidism. His condition is stable. His diet is cardiac. He is to follow up with Dr. Noah Vasquez in [address] Eber Lagunas in 2 weeks' time. DISCHARGE MEDICATIONS: 1. Cozaar 50 mg daily. 2. Synthroid 88 mcg daily. 3. Atorvastatin 20 mg daily. 4. Aspirin 81 mg daily. 5. Mobic 7.5 mg p.o. daily p.r.n. 6. Multivitamin 1 tablet p.o. daily. MMODL / IJN: [id number] /
== END 2018-09-25 10:31 | disposition home or self-care (01) ==
LOC: EC 10:55 → 1SOBS 13:32
PROVIDERS: ADMIT Family Medicine; ATTEND Family Medicine
DX: R07.89 Other chest pain (principal); I10 Essential (primary) hypertension; K21.9 Gastro-esophageal reflux disease without esophagitis; E03.9 Hypothyroidism, unspecified; E78.5 Hyperlipidemia, unspecified; E78.00 Pure hypercholesterolemia, unspecified; M19.90 Unspecified osteoarthritis, unspecified site; H57.9 Unspecified disorder of eye and adnexa; H35.30 Unspecified macular degeneration; R06.83 Snoring; E66.9 Obesity, unspecified; Z68.29 Body mass index [BMI] 29.0-29.9, adult; Z79.82 Long term (current) use of aspirin; Z79.1 Long term (current) use of non-steroidal anti-inflammatories (NSAID); Z79.890 Hormone replacement therapy; Z79.899 Other long term (current) drug therapy; Z87.891 Personal history of nicotine dependence; Z86.19 Personal history of other infectious and parasitic diseases; Z83.79 Family history of other diseases of the digestive system; Z82.49 Family history of ischemic heart disease and other diseases of the circulatory system
CPT/HCPCS: 96361 ×3; 96372 ×2; 96360; 99285; 36415; 93005; 85379; 80061; 80053; 83735; 84484; 85025; 85610; 85730; 71046; G0378 ×2; J1644 ×2

== ENCOUNTER → 2022-02-05 | Outpatient (CLI) | payer OTHER ==
[2022-02-05 14:35] LABS: African American GFR (CKD) 122.3 (60.0-200.0); Anion Gap 10.7 mmol/L (10.00-18.00); BUN/Creat Ratio 29.29 Ratio (12.00-20.00); Blood Urea Nitrogen 20.5 mg/dL (9.0-27.0); Calcium 9.6 mg/dL (8.7-10.3); Carbon Dioxide 25.3 mmol/L (20.0-27.5); Magnesium 1.9 mg/dL (1.5-2.4); Non-African American GFR(CKD) 105.5 (60.0-200.0); Potassium 4.2 mmol/L (3.5-5.5)
== END | disposition home or self-care (01) ==
LOC: LABWHC1 09:15
PROVIDERS: ATTEND Internal Medicine Interventional Cardiology
DX: I10 Essential (primary) hypertension (principal)
CPT/HCPCS: 36415; 80048; 83735

== ENCOUNTER → 2024-01-06 | Outpatient (CLI) | payer OTHER ==
--- NOTE | 2024-01-07 13:36 | CA ---
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 RDCS Procedure CPT: Indications: I50.30 UNSPECIFIED DIASTOLIC (CONGESTIVE) HEART FA Cardiac Hx: high cholesterol, HTN Technical Quality: Good Contrast 1: Total Dose (mL): Contrast 2: Total Dose (mL): MEASUREMENTS (Male / Female) Normal Values 2D ECHO LV Diastolic Diameter PLAX 5.8 cm 4.2 - 5.9 / 3.9 - 5.3 cm LV Systolic Diameter PLAX 3.4 cm IVS Diastolic Thickness 0.9 cm 0.6 - 1.0 / 0.6 - 0.9 cm LVPW Diastolic Thickness 1.0 cm 0.6 - 1.0 / 0.6 - 0.9 cm LV Relative Wall Thickness 0.3 RV Internal Dim ED PLAX 3.4 cm LA Systolic Diameter LX 3.4 cm 3.0 - 4.0 / 2.7 - 3.8 cm LV Diastolic Volume MOD 4C 143.8 cm??? LV Systolic Volume MOD 4C 58.2 cm??? LV Ejection Fraction MOD 4C 59.5 % LV Cardiac Index MOD 4C 2709.3 cm???/min???m??? LV Diastolic Length 4C 9.5 cm LV Systolic Length 4C 8.1 cm LV Diastolic Volume MOD 2C 158.3 cm??? LV Systolic Volume MOD 2C 79.2 cm??? LV Ejection Fraction MOD 2C 50.0 % LV Cardiac Index MOD 2C 2505.3 cm???/min???m??? LV Diastolic Length 2C 9.0 cm LV Systolic Length 2C 7.6 cm LA Volume 50.0 cm??? 18 - 58 / 22 - 52 cm??? LA Volume Index 25.1 cm???/m??? 16 - 28 cm???/m??? M-MODE Aortic Root Diameter MM 3.5 cm AV Cusp Separation MM 2.4 cm DOPPLER AV Peak Velocity 142.2 cm/s AV Peak Gradient 8.1 mmHg MV Area PHT 2.5 cm??? MR Peak Velocity 451.9 cm/s MR Peak Gradient 81.7 mmHg Mitral E Point Velocity 66.4 cm/s Mitral A Point Velocity 72.7 cm/s Mitral E to A Ratio 0.9 MV Deceleration Time 304.9 ms TR Peak Velocity 240.6 cm/s TR Peak Gradient 23.1 mmHg Right Ventricular Systolic Press 27.7 mmHg FINDINGS Left Ventricle Left ventricular ejection fraction is estimated at 55 %. Left ventricular cavity size normal. Left ventricular wall thickness normal. Normal left ventricular wall motion. Right Ventricle Right ventricular dilatation. Right ventricular systolic pressure within normal limits. Right Atrium Normal right atrial size. No right atrial thrombus or mass seen. Left Atrium Normal left atrial size. No left atrial thrombus or mass present. Mitral Valve Structurally normal mitral valve. Mild to moderate mitral regurgitation. Aortic Valve Trileaflet aortic valve. No aortic valve stenosis or regurgitation. Tricuspid Valve Structurally normal tricuspid valve. Mild tricuspid regurgitation. Pulmonic Valve Structurally normal pulmonic valve. Trace pulmonic regurgitation. Pericardium No pericardial effusion. No pleural effusion. Aorta Normal size aortic root and proximal ascending aorta. CONCLUSIONS Normal biventricular systolic function Mild to moderate mitral regurgitation Previewed by: Dr. Jair Browne MD (Electronically Signed) Final Date: 07 January 2024 13:35
== END | disposition home or self-care (01) ==
LOC: RADECHMAIN 17:48
PROVIDERS: ATTEND Family Medicine
DX: I50.30 Unspecified diastolic (congestive) heart failure (principal); I34.0 Nonrheumatic mitral (valve) insufficiency; E78.00 Pure hypercholesterolemia, unspecified; I11.0 Hypertensive heart disease with heart failure
CPT/HCPCS: 93306

== ENCOUNTER 2024-06-09 06:51 | Emergency (ER) | payer OTHER ==
--- NOTE | 2024-06-09 08:58 | XR ---
EXAMINATION TYPE: XR chest 2V DATE OF EXAM: 06/09/2024 8:55 AM COMPARISON: Chest radiographs from 09/24/2018 CLINICAL INDICATION: Male, 58 years old with history of syncope; TECHNIQUE: XR chest 2V Frontal and lateral views of the chest. FINDINGS: Lungs/Pleura: There is flattening of the diaphragm with increased lucency of the lungs. No evidence o f pneumothorax, pleural effusion or focal consolidation. Pulmonary vascularity: Unremarkable. Heart/mediastinum: Cardiomediastinal silhouette is unremarkable. Musculoskeletal: No acute osseous pathology. IMPRESSION: 1. No acute cardiopulmonary disease process. 2. COPD changes. [facility], , 06/09/2024 8:55 AM
--- NOTE | 2024-06-09 09:12 | CT ---
EXAMINATION TYPE: CT brain cspine wo con DATE OF EXAM: 06/09/2024 8:56 AM COMPARISON: None. CLINICAL INDICATION: Male, 58 years old with history of syncope; fall. head pain TECHNIQUE: Brain: Multiple axial CT images of the brain were obtained without IV contrast. Cspine: Axial CT images from the skull base to the inferior aspect of T2 we obtained without intraven ous contrast. Coronal and sagittal reformatted images were also reviewed. . CT DLP: 1351 mGycm, Automated exposure control for dose reduction was used. FINDINGS: Brain: Extra-axial spaces: No abnormal extra-axial fluid collections. Ventricular system: Within normal limits Cerebral parenchyma: No acute intraparenchymal hemorrhage or mass effect. The owen-white junction is well differentiated. Cerebellum: Unremarkable. Mass effect: No evidence of midline shift. Intracranial vasculature: unremarkable Soft tissues: Normal. Calvarium/osseous structures: No depressed skull fracture. Paranasal sinuses and mastoid air cells: Clear. Visualized orbits: Orbital contents are intact. Cervical spine: Fracture: None. Osseous structures: Multilevel degenerative disc disease changes with endplate spurring and disc oste ophyte complex's. Vertebral alignment: Within normal limits. Spinal canal/Neural Foramina: Disc osteophyte complexes at C4-C7 with at least mild to moderate spina l canal stenosis. No evidence for significant neural foraminal stenosis. Neck soft tissues: Prevertebral soft tissues are within normal limits. Other: The airway is patent. The lung apices are clear. IMPRESSION: No acute intracranial process. No evidence of cervical spine fracture. Moderate multilevel degenerative disc disease. [facility], , 06/09/2024 9:10 AM
[2024-06-09 09:57] LABS: Basophils % (A) 0 %; Eosinophils # (A) 0.2 k/uL (0-0.7); Eosinophils % (A) 2 %; HCT 36.2 % (39.0-53.0); HGB 12.1 gm/dL (13.0-17.5); Lymphocytes # (A) 2.9 k/uL (1.0-4.8); Lymphocytes % (A) 27 %; MCH 32.8 pg (25.0-35.0); MCHC 33.5 g/dL (31.0-37.0); MCV 97.8 fL (80.0-100.0); Mean Platelet Volume 7.6; Monocytes # (A) 0.6 k/uL (0-1.0); Monocytes % (A) 5 %; Neutrophils # (A) 6.6 k/uL (1.3-7.7); Neutrophils % (A) 63 %; Platelet Count 339 k/uL (150-450); RDW 12.8 % (11.5-15.5); WBC 10.5 k/uL (3.8-10.6)
[2024-06-09 10:05] LABS: INR 0.9 (<1.2); Partial Thromboplastin Time 23.7 sec (22.0-30.0); Prothrombin Time 10.1 sec (10.0-12.5)
[2024-06-09 10:07] LABS: ALT 37 U/L (4-49); AST 37 U/L (17-59); African American GFR (CKD) >90 (>60 ml/min/1.73 sqM); Alkaline Phosphatase 90 U/L (38-126); Anion Gap 15 mmol/L; Blood Urea Nitrogen 20 mg/dL (9-20); Calcium 9.4 mg/dL (8.4-10.2); Carbon Dioxide 20 mmol/L (22-30); Chloride 105 mmol/L (98-107); Glucose 98 mg/dL (74-99); Non-African American GFR(CKD) >90 (>60 ml/min/1.73 sqM); Potassium 4.2 mmol/L (3.5-5.1); Sodium 140 mmol/L (137-145); Total Bilirubin 0.2 mg/dL (0.2-1.3); Total Protein 7.7 g/dL (6.3-8.2)
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
[2024-06-09 12:24] VITALS: BP 116/75; PULSE 88; RESP 18; TEMP 97.8
== END 2024-06-09 12:24 | disposition home or self-care (01) ==
LOC: EC 06:51
DX: S09.90XA Unspecified injury of head, initial encounter (principal); R55 Syncope and collapse; W19.XXXA Unspecified fall, initial encounter
CPT/HCPCS: 36415; 70450; 71046; 72125; 80053; 84484; 85025; 85610; 85730; 93005; 99284

== ENCOUNTER → 2024-08-02 | Outpatient (CLI) | payer OTHER ==
--- NOTE | 2024-08-02 09:03 | MR ---
INDICATION: Patient age:Male; 58 years old; Reason for study: M75.82 OTHER SHOULDER LESIONS, LEFT SHOULDER; PHH. COMPARISON: CT brain C-spine 06/01/2024. TECHNIQUE: Multi planar, multi sequence imaging was performed of the cervical spine. No Gadolinium wa s given. FINDINGS: Alignment: The cervical vertebral bodies have preserved heights. Mild retrolisthesis of C4 on C5. Bones: Bone signal is within normal limits. Multilevel anterior osteophytosis. Cord: The spinal cord is unremarkable with regards to their signal intensity and morphology. Discs: Multilevel disc height loss with disc desiccation. C2-C3: No significant stenosis. No disc herniation. Left-sided facet arthropathy with uncovertebral j oint hypertrophy resulting in mild left neural foraminal stenosis. The right neural foramen is patent . C3-C4: Posterior disc aspect complex with mild effacement of the anterior thecal sac and close proxim ity to the anterior spinal cord. Uncovertebral joint hypertrophy with bilateral facet arthropathy. M ild bilateral neural foraminal narrowing. C4-C5: Central disc protrusion superimposed upon a broad-based disc bulge resulting in effacement of the anterior thecal sac and moderate central canal stenosis. There is mass effect upon the anterior s mary cord. Uncovertebral joint hypertrophy. Moderate bilateral neuroforaminal stenosis. C5-C6: Right paracentral disc protrusion superimposed upon a broad-based disc bulge resulting in effa cement of the anterior thecal sac with moderate central canal stenosis. . There is abutment of the an terior spinal cord. Uncovertebral joint hypertrophy with moderate bilateral neuroforaminal stenosis C6-C7: Broad-based disc bulge with effacement of the anterior thecal sac and abutment of the anterior spinal cord. Resultant moderate central canal stenosis. Uncovertebral joint hypertrophy. Moderate bi lateral neural foraminal stenosis. C7-T1: No significant disc pathology. The spinal canal is patent. No neural foraminal stenosis. T1-T2: Disc osteophyte complex with prominent osteophyte extending along the right paracentral region with effacement of anterior thecal sac and abutment of the right anterior lateral spinal cord. Moder ate right neuroforaminal stenosis. The left neural foramen is patent. T2-T3 eccentric left paracentral disc protrusion with mild effacement of anterior thecal sac. No neur al foraminal stenosis. Other: None. IMPRESSION: Moderate multilevel disc degeneration with associated osteoarthritic changes as described above. Most prominent from C4 through C7. [facility], , 08/02/2024 9:01 AM
--- NOTE | 2024-08-04 12:46 | MR ---
EXAMINATION TYPE: MR shoulder LT wo con DATE OF EXAM: 08/02/2024 9:00 AM COMPARISON: None CLINICAL INDICATION: Male, 58 years old with history of M75.82 OTHER SHOULDER LESIONS, LEFT SHOULDER; Left shoulder pain, decreased ROM S/P fall. TECHNIQUE: Multi planar, multi sequence imaging was performed of the shoulder including: Axial and coronal hetal n density fat-saturated sequences, T2 fat-saturated sagittal sequence, and T1-weighted imaging. No G adolinium was given. Left shoulder pain, decreased ROM S/P fall. FINDINGS: Supraspinatus tendon: Full-thickness rotator cuff tear involving the supraspinatus and infraspina tus extending 4.0 x 2.0 cm with 3.0 cm of retraction. Infraspinatus tendon: Full-thickness rotator cuff tear Majority of fibers with a few posterior fibers remaining. Majority of the anterior fibers with a few posterior fibers remaining measuring at least 3.0 cm x 3.0 cm Subscapularis tendon: Partial tear of the articular fibers Teres minor tendon: Intact Long head biceps tendon: Intact, appropriately positioned within the bicipital groove. High PD si gnal is seen tracking along the tendon sheath with increased signal as it inserts on the superior lab rum. Acromioclavicular joint: Mild osteoarthrosis. Undersurface spurring impinging on the supraspinat us tendon. Small effusion.. Glenohumeral joint: Large joint effusion. Normal alignment of this location.. Mild cartilage thin gabriele. Glenoid labrum: Degenerative labrum, within the limits of non arthrographic technique. Muscle volume: Edema within the supraspinatus infraspinatus muscles. Bone marrow: Normal no evidence for fracture. Edema around the AC joint. Soft tissues: Edema surrounding the shoulder in the myofascial planes. No organizing fluid collec tion.. Joint/bursal fluid: Edema within the subacromial bursa. Due to full-thickness rotator cuff tear. IMPRESSION: 1. Full-thickness suspected complete tear of the supraspinatus and full-thickness tear of a majority of the infraspinatus. Few posterior infraspinatus fibers remaining with retraction up to 3.0 cm of t he torn fibers. 2. High grade partial tear of the articular fibers of the subscapularis. 3. Long head biceps tendinosis [facility], , 08/04/2024 12:44 PM
== END | disposition home or self-care (01) ==
LOC: RADMRIMAIN 07:52
PROVIDERS: ATTEND Family Medicine
DX: M47.22 Other spondylosis with radiculopathy, cervical region (principal); M50.11 Cervical disc disorder with radiculopathy, high cervical region; M99.71 Connective tissue and disc stenosis of intervertebral foramina of cervical region; S46.012A Strain of muscle(s) and tendon(s) of the rotator cuff of left shoulder, initial encounter; M67.814 Other specified disorders of tendon, left shoulder; M75.82 Other shoulder lesions, left shoulder
CPT/HCPCS: 72141

== ENCOUNTER 2024-08-30 08:43 | Day surgery (SDC) | payer OTHER ==
[2024-08-30 09:19] VITALS: RESP 16; TEMP 97.3
[2024-08-30] MEDS: IV FLUID CONTINUATION 1,000 ML IV ONE (09:19)
[2024-08-30] MEDS: LACTATED RINGERS 1,000 ML IV SCH (09:20)
[2024-08-30] MEDS ORDERED: LIDOCAINE 1% INJ 10MG/ML (20 ML MDV) ONE (09:28)
[2024-08-30] MEDS ORDERED: PROPOFOL 10 MG/ML 20 ML VIAL IV ONE (09:28)
--- NOTE | 2024-08-30 09:47 | P.OP ---
Date of Procedure: 08/30/24 Preoperative Diagnosis: Peptic ulcer disease Postoperative Diagnosis: Antral gastritis Procedure(s) Performed: EGD Anesthesia: MAC Surgeon: Jesus Manuel Jaquez Pathology: other (Antrum) Condition: stable Disposition: PACU Description of Procedure: The patient was placed on the endoscopy table in the lateral position. He received IV sedation. The Gastroflux oropharynx passed in the esophagus and the stomach. Scope was placed through the pylorus. The first second portion duodenum appeared normal. Scope was brought back to the antrum this appeared mildly inflamed. This was biopsied. The previously seen gastric ulcer has completely healed. The scope was retroflexed Judy stomach appeared normal. The GE junction was at 40 cm. The distal esophagus appeared normal. The proximal esophagus appeared normal. Scope withdrawn patient.
[2024-08-30 10:29] VITALS: BP 122/79; PULSE 70
== END 2024-08-30 10:40 | disposition home or self-care (01) ==
LOC: ORWHC2ENDO 08:43
PROVIDERS: ATTEND Surgery
DX: K29.51 Unspecified chronic gastritis with bleeding (principal); K27.9 Peptic ulcer, site unspecified, unspecified as acute or chronic, without hemorrhage or perforation; K21.9 Gastro-esophageal reflux disease without esophagitis; I10 Essential (primary) hypertension; E78.5 Hyperlipidemia, unspecified; E07.9 Disorder of thyroid, unspecified; G47.33 Obstructive sleep apnea (adult) (pediatric); H35.30 Unspecified macular degeneration; Z99.89 Dependence on other enabling machines and devices; Z79.890 Hormone replacement therapy; Z79.02 Long term (current) use of antithrombotics/antiplatelets; Z79.51 Long term (current) use of inhaled steroids; Z79.899 Other long term (current) drug therapy
CPT/HCPCS: 88305; 43239; J2003; J2704

== ENCOUNTER → 2024-09-11 | Outpatient (CLI) | payer OTHER ==
--- NOTE | 2024-09-11 11:55 | NM ---
EXAMINATION TYPE: NM stress cardiolite complete DATE OF EXAM: 09/11/2024 COMPARISON: Prior stress test 2016 CLINICAL INDICATION: Male, 59 years old with history of I21.9 ACUTE MYOCARDIAL INFARCTION, UNSPECIFIE D; personal history of hypertension and hypercholesterolemia. TECHNIQUE: After the intravenous administration of 9.1 mCi Tc 99m Sestamibi - Rest images obtained 4 5 minutes post injection. The patient exercised using a MINNIE protocol and 1 minute prior to peak e xercise was injected with 23.2 mCi Tc 99m Sestamibi - Stress images obtained 20 minutes post injectio n. FINDINGS: Targeted heart rate was achieved during performance of the study. Review of stress and rest SPECT darcy ges demonstrates no distinct perfusion abnormality. Gated analysis shows normal wall motion with an estimated left ventricular ejection fraction of 62%. IMPRESSION: No scintigraphic evidence for reversible ischemia. [facility], , 09/11/2024 11:53 AM
--- NOTE | 2024-09-11 20:13 | CA ---
Exercise Nuclear Stress Test Report Name: Nick Collins Exam Date: 09/11/2024 10:23 Exam Location: [place] Stress Ht (in): 67 Wt (lb): 170 BSA: 1.89 Ordering Phys: Noah Vasquez MD Referring Phys: Noah Vasquez MD Technologist: WILMAR HEAD Age: 59 Gender: M : 1965 Procedure CPT: Indications: I21.9 ACUTE MYOCARDIAL INFARCTION, UNSPECIFIED ICD-10 Codes: Patient History: Medications: ATORVASTATIN,,,, CARVEDALOL,,,, LEVOTHYROXINE,,,, ENTRESTO,,,, MONTELUKAST,,, Meds past 24 hrs: Pretest Chest Pain: STRESS TEST Lucius Protocol Exercise Duration (min:sec): 09:[address] Depressions (mm): Angina Score: Maurer Score: Resting HR (bpm): 88 Peak HR (bpm): 151 Resting BP (mmHg): 119 / 74 Peak BP (mmHg): 169 / 68 MPHR: 161 Target HR: 137 % MPHR: 94 METS: 11.2 Total Dose: Peak Dose: Atropine: Double Product: 44809 BP Response: Stress Termination: TARGET HR REACHED/MAX EXERTION Stress Symptoms: NO SYMPTOMS Stress Summary: ECG ANALYSIS Resting ECG: Stress ECG: CONCLUSIONS Indication for procedure abnormal EKG at Dr. Mac's office showing Q waves in the inferior leads with T wave inversion suggestive of an old inferior wall DE Baseline heart rate 79 beats minute, baseline blood pressure 120/74 mmHg. Baseline 12 EKG was normal. No Q waves noted no T wave abnormalities were noted Good exercise capacity on a Lucius protocol of 9 minutes 35 seconds No ECG evidence for ischemia No arrhythmias Dr. Eber Lagunas MD (Electronically Signed) Final Date: 11 September 2024 20:12
== END | disposition home or self-care (01) ==
LOC: RADNMMAIN 08:23
PROVIDERS: ATTEND Family Medicine
DX: I21.9 Acute myocardial infarction, unspecified (principal); I10 Essential (primary) hypertension; E78.00 Pure hypercholesterolemia, unspecified
CPT/HCPCS: 93017; 78452; A9500

== ENCOUNTER → 2024-09-14 | Day surgery (SDC) | payer OTHER ==
[2024-09-11 14:46] VITALS: BMI 27.7
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
[~2024-09-14] MED LIST changes: +DEXAMETHASONE SOD PHOSPHATE 4 MG/ML 1 ML VIAL ONE; -LACTATED RINGERS 1,000 ML IV SCH; +LIDOCAINE 1% (10MG/ML) FOR IV START INTRADERMA PRN; -LIDOCAINE 1% 20 ML VIAL (10MG/ML) FOR IV START INTRADERMA PRN; +LIDOCAINE 1% INJ 10MG/ML (20 ML MDV) ONE; +LIDOCAINE 4% LTA KIT (4 ML) TOPICAL ONE; +PHENYLEPHRINE 10 MG/ML VIAL ONE; +PROPOFOL 10 MG/ML 20 ML VIAL IV ONE; +ROPIVACAINE 5 MG/ML 30 ML VIAL ONE; +SUCCINYLCHOLINE CHLORIDE 200 MG/10 ML VIAL IV ONE; +ePHEDrine 50 MG/ML 1 ML VIAL ONE; +fentaNYL (PF) 50 MCG/ML 2 ML AMP IVP PRN
[2024-09-14] MEDS: IV FLUID CONTINUATION 1,000 ML IV ONE ×2 (06:16→10:45)
[2024-09-14] MEDS: LACTATED RINGERS 1,000 ML IV SCH (06:50)
[2024-09-14] MEDS: DEXAMETHASONE SOD PHOSPHATE 4 MG/ML 1 ML VIAL IV ONE (06:51)
[2024-09-14] MEDS: ONDANSETRON 4 MG/2 ML VIAL IVP ONE (06:51)
[2024-09-14] MEDS: MIDAZOLAM 2 MG/2 ML VIAL IV PRN (07:05)
[2024-09-14] MEDS: EPINEPHrine 4 MG in SODIUM CHLORIDE 0.9% IRRIGATIO 3,000 ML IRRIGATION ONE (08:27)
--- NOTE | 2024-09-14 09:17 | P.OP ---
Date of Procedure: 09/14/24 Preoperative Diagnosis: Left largeretracted rotator cuff tear Postoperative Diagnosis: 5 cm left rotator cuff tear, high-grade partial-thickness tear intra-articular portion long head of the biceps Procedure(s) Performed: Left shoulder arthroscopic subacromial decompression, biceps tenotomy, rotator cuff repair Implants: Arthrex 4.75 mm swivel lock anchor x 2, 5.5 mm swivel lock anchor x 2 Anesthesia: [facility], regional Surgeon: Eren Dumont Campaign Management Specialist #1: Shahzad Guevara Estimated Blood Loss (ml): 10 Pathology: none sent Condition: stable Disposition: PACU Indications for Procedure: The patient is a 59-year-old male who presents with left shoulder pain and weakness after an injury despite conservative measures. A discussion of the risks and benefits of operative intervention versus continued conservative measures was made with the patient. He opted to proceed with surgery. Operative risk to include infection, neurovascular injury, development of blood clots, possible tendon rerupture, possible postoperative stiffness, and possible need for subsequent procedures was discussed. Informed consent is obtained. Operative Findings: As below Description of Procedure: The patient was brought to the operating room, and after induction of general anesthesia was placed in a beachchair position. A preoperative interscalene block was placed for postoperative analgesia. I examined the left shoulder. There was no gross block to passive motion or gross glenohumeral instability. The left upper extremity was prepped and draped in normal fashion. The bony outlines the acromion, distal clavicle, and coracoid process were outlined with a skin marker. The glenohumeral joint was inflated with 50 mL of saline utilizing a spinal needle from posterior approach. A posterior portal was made through a 5 mm skin incision 1 cm medial and inferior to the posterior lateral border time. A blunt trocar was used to easily into the joint. Diagnostic arthroscopy was performed. An anterior portal was made just lateral to the coracoid process entering the joint above the subscapularis tendon. The subscapularis tendon appeared to be intact. Anterior labrum was intact. The inferior recess was inspected. The posterior labrum was intact. There was a high-grade partial-thickness tear of the long head of the biceps involving interarticular portion. I elected to proceed with release at this point. This was released from the superior labrum with electrocautery and was allowed to retract to the bicipital groove. On inspection the rotator cuff, a large tear involving the supraspinatus and infraspinatus was noted retracted to the glenoid. The arthroscope was placed into the subacromial space. A lateral portal was made 2 centimeters inferior to the anterior lateral border of the acromion. The rotator cuff was then mobilized with a traction suture. This was then brought back to the medial aspect of the greater tuberosity. The soft tissue on the undersurface of the acromion was debrided with a motorized shaver and electrocautery clearly defining the anterior medial and lateral borders as well as the distal clavicle. An anterior inferior acromioplasty was performed with a motorized hakan starting anterolateral, then extending this posteriorly, then extending this medially. I converted to a flat acromion and this was verified in the posterior and lateral viewing portals. The greater tuberosity was lightly decorticating with a shaver down to a bleeding bony surface. An accessory superior lateral portals made just off the lateral edge of the a cromion for anchor placement. 2 anchors were then placed just off the articular surface with the appropriate starting awl. 4.75 mm anchors preloaded with #2 fiber tape were placed. Good purchase was obtained. These fiber tapes were then passed the rotator cuff with a scorpion suture passer. A lateral row was created crisscrossing these tapes. 5.5 mm swivel lock anchors x2 were placed laterally. Good purchase was obtained. Final arthroscopic view showed adequate compression at the footprint. The arthroscope was then removed. The portals were closed with simple 3-0 nylon sutures. A sterile dressing was applied in addition to an abductor brace. The patient was then awoken from general anesthesia and transferred to recovery room in good condition. Blood loss was estimated at 10 mL. No complications were incurred. Sponge and needle counts were correct in the case. Shahzad BLAKE assisted and the major components of the case to include arm positioning, anchor placement, and rotator cuff repair.
[2024-09-14 09:23] VITALS: TEMP 97.1
[2024-09-14] MEDS: HYDROmorphone 0.5 MG/0.5 ML SYRINGE IVP PRN (09:39)
[2024-09-14 10:37] VITALS: RESP 16
[2024-09-14 10:59] VITALS: BP 115/73; PULSE 96
--- NOTE | 2024-09-16 17:06 | P.ANPRN ---
Procedure Note - Anesthesia - Nerve Block Performed Left Interscalene Single Time Out Performed: Yes Date of Procedure: 09/14/24 Procedure Start Time: 07:05 Procedure Stop Time: 07:12 Indication: Acute Post-Operative Pain, Requested by Surgeon Sedation Type: Sedate with meaningful contact maintained Preparation: Sterile Prep Position: Supine Needle Types: Pajunk Needle Gauge: 21 Ultrasound used to visualize needle placement: Yes Ultrasound used to observe medication spread: Yes Blood Aspirated: No Pain Paresthesia on Injection Noted: No Resistance on Injection: Normal Image Stored and Saved: Yes Events: Uneventful and Well Tolerated (Ropivacaine 0.5% 40 cc plus dexamethasone 4 mg)
== END | disposition home or self-care (01) ==
LOC: OR 05:51
PROVIDERS: ATTEND Orthopaedic Surgery
DX: S46.012A Strain of muscle(s) and tendon(s) of the rotator cuff of left shoulder, initial encounter (principal); M75.42 Impingement syndrome of left shoulder; E07.9 Disorder of thyroid, unspecified; E78.5 Hyperlipidemia, unspecified; G89.18 Other acute postprocedural pain; I10 Essential (primary) hypertension; M19.90 Unspecified osteoarthritis, unspecified site; Z79.890 Hormone replacement therapy; Z87.891 Personal history of nicotine dependence; Z79.899 Other long term (current) drug therapy; X58.XXXA Exposure to other specified factors, initial encounter
CPT/HCPCS: 64415; 29827; 29828; C1713 ×2; C1894; J0171; J2250; J0330; J1100; J0690; J2405; J2003; J2795; J2704; J1171; J2371

== ENCOUNTER 2024-09-15 09:33 | Emergency (ER) | payer OTHER ==
[2024-09-15 09:39] VITALS: RESP 20
[2024-09-15] MEDS: KETOROLAC 15 MG/ML 1 ML VIAL IM STA (10:38)
[2024-09-15] MEDS: HYDROmorphone 0.5 MG/0.5 ML SYRINGE IM STA (10:39)
[2024-09-15] MEDS: HYDROmorphone 0.5 MG/0.5 ML SYRINGE IVP STA (10:41)
[2024-09-15] MEDS: KETOROLAC 15 MG/ML 1 ML VIAL IVP STA (10:41)
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
[2024-09-15 12:01] VITALS: BP 148/76; PULSE 88; TEMP 98.7
== END 2024-09-15 13:24 | disposition home or self-care (01) ==
LOC: EC 09:33
DX: G89.18 Other acute postprocedural pain (principal)
CPT/HCPCS: 99283; 96372; J1885; J1171